=== PATIENT | female | born 1975 | race Caucasian/White ===

== ENCOUNTER 2020-06-08 01:47 | Outpatient (CLI) | payer OTHER, SELFPAY ==
--- NOTE | 2020-06-08 06:15 | DI.MAMMO_ITS ---
EXAM: MAMMO SCREENING CLINICAL HISTORY: screening,Z12.39 TECHNIQUE: Mammograms were interpreted according to the usual protocol including computer analysis w [employer] CAD system, tomosynthesis and C-view imaging. COMPARISON: Baseline examination. FINDINGS: The breasts are composed of scattered fibroglandular densities, Breast Density category B. No suspicious masses or suspicious microcalcifications are seen. No skin thickening or abnormal axillary lymph nodes are seen. There has been no significant change from prior exams. IMPRESSION: BI-RADS Category 1, Negative mammogram Yearly screening mammography is recommended. Breast Density - Category B, scattered fibroglandular densities. A negative radiographic report should not delay biopsy if a dominant or clinically suspicious mass is present. Up to ten percent of cancers are not identified on mammography. A negative report may reinforce clinical impression. Adenosis and dense breasts may obscure an underlying neoplasm. False positive reports average 6 to 10%. Patient will receive a letter notifying them of these results.
--- NOTE | 2020-06-08 06:15 | DI.US_ITS ---
EXAM: US PELVIS TRANSVAGINAL CLINICAL HISTORY: heavy periods,MENORRHAGIA, N92.0 TECHNIQUE: Transabdominal and transvaginal imaging was performed using standard protocol. COMPARISON: No exams were available for comparison FINDINGS: KIDNEYS: Kidneys are symmetric in size. No evidence of renal calculi. No evidence of hydronephrosis. No renal mass or cyst identified. UTERUS: 8.7 x 4.3 x 4.7 cm Anteverted. Endometrium: 3 millimeters. Myometrium: Heterogeneous myometrium several small fibroids. Cervix: Nabothian cysts. scar. OVARIES: Right: Cyst or mass: None. Left: Cyst or mass: None. DOPPLER: Color: Symmetric and uniform flow to both ovaries. No hyperemia. Duplex: Normal ovarian arterial waveforms visualized. CUL-DE-SAC: Free fluid: None. IMPRESSION: 1. Heterogeneous myometrium. Small fibroids.. 2. Unremarkable bilateral ovaries. DATA REPOSITORY:
== END 2020-06-08 02:07 ==
PROVIDERS: PCP Emergency Medicine; Visit Provider Nurse Practitioner Family
DX: Z12.31 Encounter for screening mammogram for malignant neoplasm of breast (principal); N92.0 Excessive and frequent menstruation with regular cycle; D25.9 Leiomyoma of uterus, unspecified
CPT/HCPCS: 77063; 77067; 76830; 76856

== ENCOUNTER 2020-06-08 04:19 | Outpatient (CLI) | payer OTHER, SELFPAY | END 2020-06-08 04:20 | disposition home or self-care (01) | LOC: LBO 04:19 | PROVIDERS: Nurse Practitioner Family; PCP Emergency Medicine; Visit Provider Emergency Medicine | DX: N92.0 Excessive and frequent menstruation with regular cycle (principal) | CPT/HCPCS: 36415; 84443 ==

== ENCOUNTER 2020-06-16 09:46 | Outpatient (REF) | payer OTHER, SELFPAY ==
--- NOTE | 2020-06-16 09:30 | PAPFT_PTH ---
PATIENT: Kavin Phan LOC: [facility] U#:[id number] AGE/SX: 45/F ROOM: RE06/16/[address]: TEJ Franklin : 1975 BED: DIS: 06/16/2020 SPEC #: [id number] RECD: 06/16/20 12:57 STATUS: [place] REGerry #: [id number] KRISTAN: 06/16/20 09:[address]: Janice Chisholm DEPT: [facility] Cytology RECD BY: Cathy Day ENTERED: 06/16/20 12:57 SP TYPE: PAPFT EDER DR: Avni Vasquez, Tissues: 1 - CX/ENDOCX FOR PAP SMEARS Procedures: PAP THIN PREP/UVM Screening HPV DNA PROBE Comments: [id number]
== END 2020-06-16 09:47 | disposition home or self-care (01) ==
LOC: LBN 09:46
PROVIDERS: PCP Emergency Medicine; Referring Provider Emergency Medicine; Visit Provider Nurse Practitioner Family
DX: Z12.4 Encounter for screening for malignant neoplasm of cervix (principal); Z11.51 Encounter for screening for human papillomavirus (HPV)
CPT/HCPCS: 88142; 87624

== ENCOUNTER 2020-11-23 00:44 | Outpatient (CLI) | payer OTHER, SELFPAY ==
--- NOTE | 2020-11-23 14:09 | DI.RAD_ITS ---
Exam(s) XR ANKLE RT COMPLETE EXAM: XR ANKLE RT COMPLETE CLINICAL HISTORY: right ankle pain, M25.579. TECHNIQUE: 2D digital imaging was performed. COMPARISON: No exams were available for comparison FINDINGS: There is no evidence of acute fracture no widening of the mortise. There are 3 similar appearing os ossific densities around the medial malleolus which have the appearance more so of accessory ossicles than fracture fragments. Tibiotalar-ankle joint appears unremarkable as does the subtalar joint. N o osseous tarsal coalition. Bone density normal. IMPRESSION: DATA REPOSITORY: RADIATION DOSE DELIVERED:
== END 2020-11-23 01:04 ==
PROVIDERS: PCP Emergency Medicine; Visit Provider Emergency Medicine
DX: M25.571 Pain in right ankle and joints of right foot (principal); M61.1 Myositis ossificans progressiva
CPT/HCPCS: 73610

== ENCOUNTER → 2022-01-07 00:01 | Outpatient (CLI) | payer OTHER, SELFPAY ==
--- NOTE | 2022-01-07 06:30 | DI.MAMMO_ITS ---
Exam(s) MAMMO SCREENING EXAM: MAMMO SCREENING CLINICAL HISTORY: screening,Z12.39. TECHNIQUE: Bilateral full field digital CC and MLO mammographic images were obtained with 3D tomosyn thesis and utilizing computer aided detection (CAD). COMPARISON: Prior mammograms were reviewed, the most recent being June 2020. FINDINGS: There are no CAD designations. There are no new new spiculated masses nor malignant appearing microcalcification groups. There is no significant architectural distortion nor skin thickening-retraction. IMPRESSION: No radiographic evidence of malignancy. BI-RADS Category 1 - Negative Breast Density - Category C - Heterogeneously dense Breast density Category C or D implies that the patient has dense breast tissue. Dense breast tissue can make it harder to find cancer on a mammogram. Dense breast tissue is also associated with an incr eased risk of breast cancer. This information about the result of the mammogram report was provided to the patient to raise their awareness. Use this report when you speak with the patient about their risks for breast cancer, which includes their family history. At that time, you may recommend additional screening tests (Ultrasoun d or MRI) as these tests may add significant information. A negative radiographic report should not delay biopsy if a dominant or clinically suspicious mass is present. Up to ten percent of cancers are not identified on mammography. A negative report may reinforce clinical impression. Adenosis and dense breasts may obscure an underlying neoplasm. False positive reports average 6 to 10%. Patient will receive a letter notifying them of these results.
== END ==
PROVIDERS: PCP Nurse Practitioner; Visit Provider Nurse Practitioner
DX: Z12.31 Encounter for screening mammogram for malignant neoplasm of breast (principal); R92.8 Other abnormal and inconclusive findings on diagnostic imaging of breast
CPT/HCPCS: 77063; 77067

== ENCOUNTER 2022-08-09 01:33 | Outpatient (CLI) | payer BC, SELFPAY ==
--- NOTE | 2022-08-09 | DI.MAMMO_ITS ---
Exam(s) US BREAST LT COMPLETE MG MAMMO DIAGNOSTIC UNI EXAM: MG MAMMO DIAGNOSTIC UNI -LEFT AND COMPLETE LEFT BREAST ULTRASOUND CLINICAL HISTORY: DIAGNOSTIC, LT BREAST MASS, N63.20. TECHNIQUE: Unilateral LEFT BREAST CC AND MLO PLUS SPOT mammographic images were obtained with 3D to mosynthesis technique and utilizing computer aided detection (CAD). Also performed complete left breast ultrasound including all 4 quadrants, the retroareolar region, an d the left axilla. COMPARISON: Prior mammograms were reviewed, the most recent being 01/07/2022. FINDINGS: DIAGNOSTIC LEFT BREAST MAMMOGRAM: There been no significant change in the appearance and distribution tissue left breast. There are no CAD designations. No new masses nor malignant-appearing microcalcification groups in left breast. No new architectural distortion or skin thickening-traction. COMPLETE LEFT BREAST ULTRASOUND: This study reveals no evidence of solid or significant cystic lesions in all 4 quadrants nor in the r etroareolar region. Scanning of the left axilla is negative for adenopathy. IMPRESSION: 1. No radiographic evidence of malignancy in left breast. 2. Negative complete left breast ultrasound. The patient was informed of the findings and follow-up recommendations prior to leaving the [facility] today. BI-RADS Category 2 - Benign Findings Breast Density - Category C - Heterogeneously dense Breast density Category C or D implies that the patient has dense breast tissue. Dense breast tissue can make it harder to find cancer on a mammogram. Dense breast tissue is also associated with an incr eased risk of breast cancer. This information about the result of the mammogram report was provided to the patient to raise their awareness. Use this report when you speak with the patient about their risks for breast cancer, which includes their family history. At that time, you may recommend additional screening tests (Ultrasoun d or MRI) as these tests may add significant information. A negative radiographic report should not delay biopsy if a dominant or clinically suspicious mass is present. Up to ten percent of cancers are not identified on mammography. A negative report may reinforce clinical impression. Adenosis and dense breasts may obscure an underlying neoplasm. False positive reports average 6 to 10%. Patient will receive a letter notifying them of these results.
== END 2022-08-09 01:53 ==
PROVIDERS: PCP Nurse Practitioner Family; Visit Provider Family Medicine
DX: N63.20 Unspecified lump in the left breast, unspecified quadrant (principal)
CPT/HCPCS: 76642; 77061; 77065; G0279

== ENCOUNTER 2023-11-29 01:47 | Outpatient (CLI) | payer BC, SELFPAY ==
--- NOTE | 2023-11-29 08:00 | DI.MAMMO_ITS ---
Exam(s) MAMMO SCREENING EXAM: MAMMO SCREENING CLINICAL HISTORY: screening,Z12.39. TECHNIQUE: Bilateral full field digital CC and MLO mammographic images were obtained with 3D tomosyn thesis and utilizing computer aided detection (CAD). COMPARISON: Prior mammograms were reviewed. Prior ultrasound exam of 08/09/2022 also reviewed. FINDINGS: Fibroglandular tissue pattern is again noted be moderately dense. There are no obvious new spiculated masses nor malignant appearing microcalcification groups. There is no significant architectural distortion nor skin thickening-retraction. IMPRESSION: No radiographic evidence of malignancy. BI-RADS Category 1 - Negative Breast Density - Category C - Heterogeneously dense Breast density Category C or D implies that the patient has dense breast tissue. Dense breast tissue can make it harder to find cancer on a mammogram. Dense breast tissue is also associated with an incr eased risk of breast cancer. This information about the result of the mammogram report was provided to the patient to raise their awareness. Use this report when you speak with the patient about their risks for breast cancer, which includes their family history. At that time, you may recommend additional screening tests (Ultrasoun d or MRI) as these tests may add significant information. A negative radiographic report should not delay biopsy if a dominant or clinically suspicious mass is present. Up to ten percent of cancers are not identified on mammography. A negative report may reinforce clinical impression. Adenosis and dense breasts may obscure an underlying neoplasm. False positive reports average 6 to 10%. Patient will receive a letter notifying them of these results.
== END 2023-11-29 02:07 ==
LOC: DI 01:47
PROVIDERS: PCP Nurse Practitioner Family; Visit Provider Family Medicine
DX: Z12.31 Encounter for screening mammogram for malignant neoplasm of breast (principal)
CPT/HCPCS: 77063; 77067

== ENCOUNTER 2023-11-29 15:02 | Outpatient (CLI) | payer BC, SELFPAY ==
[2023-11-29 14:52] LABS: HCT 40.1 % (36.0-46.0); HGB 13.4 g/dL (11.2-15.7); MCH 30.5 pg (27.0-33.0); MCHC 33.4 % (32.0-36.0); MCV 91 fL (80-95); MPV 9.1 fL (8.0-11.0); Platelet Count 277 10^3/uL (130-400); RBC 4.39 10^6/uL (3.93-5.22); RDW 13.2 % (11.7-14.6); RDW-SD 44.4 fL
[2023-11-29 15:03] LABS: Hemoglobin A1C 5.5 % (<5.7)
[2023-11-29 15:33] LABS: ALT 30 U/L (14-59); AST 16 U/L (15-37); Albumin 3.7 g/dL (3.4-5.0); Alkaline Phosphatase 59 U/L (46-116); Anion Gap 7.8 mmol/L (3-11); BUN 16 mg/dL (7-18); Bilirubin, Total 0.29 mg/dL (0.2-1.0); CO2 27.2 mmol/L (21.0-32.0); Calculated LDL 100 mg/dL (<100); Chloride 106 mmol/L (98-107); Cholesterol 191 mg/dL (<200); Estimated GFR 69.06 (mL/min/1.73m2); Glucose 96 mg/dL (74-106); HDL Cholesterol 75 mg/dL (40-60); Sodium 141 mmol/L (136-145); TSH (W/Ref FT4) 1.44 uIU/mL (0.36-3.74); Total Protein 6.8 g/dL (6.4-8.2); Triglyceride 80 mg/dL (<150)
[2023-11-30 23:06] LABS: FSH 4.8 mIU/mL (See Note)
[2023-11-30 23:10] LABS: LH 2.3 mIU/mL (See Note)
== END 2023-11-29 15:03 | disposition home or self-care (01) ==
LOC: LBO 15:04
PROVIDERS: Family Medicine; PCP Nurse Practitioner Family; Visit Provider Nurse Practitioner Family
DX: N95.1 Menopausal and female climacteric states (principal); Z00.00 Encounter for general adult medical examination without abnormal findings
CPT/HCPCS: 36415; 80053; 80061; 85027; 83001; 83002; 83036; 84443

== ENCOUNTER 2023-12-24 10:52 | Emergency (ER) | payer BC, SELFPAY ==
[2023-12-24 10:58] VITALS: BP 120/74; PULSE 82; RESP 16; TEMP 36.6; O2SAT 98
--- NOTE | 2023-12-24 11:00 | DI.RAD_ITS ---
Exam(s) XR KNEE LT 2V AP,LAT EXAM: XR KNEE LT 2V AP,LAT CLINICAL HISTORY: laceration. TECHNIQUE: 2D digital imaging was performed. COMPARISON: No exams were available for comparison FINDINGS: Two views-AP and lateral. There is evidence of previous ACL surgery. No evidence of fracture or obvious joint effusion nor significant joint space narrowing. Soft tissue /subcutaneous defect noted over the anterior tibial tubercle region h, consistent with large air soft tissue defect-avulsion. Two small radiopaque foreign bodies are noted in the soft tissues just ante rior to the anterior tibial tubercle. These are probably small foreign bodies. IMPRESSION: Anterior small foreign bodies as described above. No fractures. First read by [facility]. Final report called by myself to ER physician 12/04/2023 6:32 p.m. DATA REPOSITORY: RADIATION DOSE DELIVERED:
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
[2023-12-24 11:58] VITALS: PULSE 62; RESP 16; O2SAT 100
--- NOTE | 2023-12-24 12:35 | DI.VRAD_ITS ---
PROCEDURE INFORMATION: Exam: XR Left Knee Exam date and time: 12/24/2023 11:11 AM Age: 48 years old Clinical indication: Other: Laceration TECHNIQUE: Imaging protocol: Radiologic exam of the left knee. Views: 1 or 2 views. COMPARISON: No relevant prior studies available. FINDINGS: Bones/joints: Prior ACL reconstruction. No acute fracture or malalignment. Soft tissues: Soft tissue defect overlying the tibial tubercle. No unexpected radiopaque foreign body. IMPRESSION: 1. Soft tissue defect overlying the tibial tubercle. 2. No unexpected radiopaque foreign body. Dictated and Authenticated by: Helena Smith MD. Ordering:CATE Hoff MD
== END 2023-12-24 12:01 | disposition home or self-care (01) ==
PROVIDERS: Emergency Provider Emergency Medicine; PCP Nurse Practitioner Family
DX: S81.812A Laceration without foreign body, left lower leg, initial encounter (principal); V18.4XXA Pedal cycle driver injured in noncollision transport accident in traffic accident, initial encounter; Y92.488 Other paved roadways as the place of occurrence of the external cause; Y93.55 Activity, bike riding; Z87.891 Personal history of nicotine dependence
CPT/HCPCS: 12032; 99283; 73560

== ENCOUNTER → 2025-03-04 11:37 | Outpatient (CLI) | payer BC, SELFPAY ==
--- NOTE | 2025-03-04 11:50 | DI.RAD_ITS ---
Exam(s) XR CHEST 2V PA LATERAL EXAM: XR CHEST 2V PA LATERAL CLINICAL HISTORY: eval pathology, cough, R05.9. TECHNIQUE: 2D digital imaging was performed. COMPARISON: No exams were available for comparison FINDINGS: 2 views: Heart size is normal. The mediastinum is not widened. Left lung is clear. However, there is nodular type infiltrate in the right parahilar region. There are no pleural effusions. No pneumothorax. No fractures. IMPRESSION: Right upper lobe parahilar infiltrate. Correlate clinically. Requires imaging follow-up to resolution to rule out malignancy. DATA REPOSITORY: RADIATION DOSE DELIVERED:
== END ==
PROVIDERS: PCP Nurse Practitioner Family; Visit Provider Nurse Practitioner Family
DX: R05.9 Cough, unspecified (principal); R91.8 Other nonspecific abnormal finding of lung field
CPT/HCPCS: 71046

== ENCOUNTER 2025-03-11 01:34 | Outpatient (CLI) | payer BC, SELFPAY ==
[2025-03-11 13:54] LABS: Abs Immature Grans 0.03 10^3/uL (0.0-0.06); HCT 41.8 % (36.0-46.0); HGB 14.3 g/dL (11.2-15.7); Immature Grans % 0.5 %; MCH 31.0 pg (27.0-33.0); MCHC 34.2 % (32.0-36.0); MCV 91 fL (80-95); MPV 9.6 fL (8.0-11.0); Platelet Count 363 10^3/uL (130-400); RBC 4.62 10^6/uL (3.93-5.22); RDW 12.2 % (11.7-14.6); RDW-SD 40.3 fL; WBC 6.24 10^3/uL (4.4-10.8)
[2025-03-11 15:10] LABS: ALT 26 U/L (10-49); AST 24 U/L (<34); Albumin 4.4 g/dL (3.2-5.0); Alkaline Phosphatase 53 U/L (46-116); Anion Gap 8 mmol/L (3-11); BUN 15 mg/dL (9-23); Bilirubin, Total 0.5 mg/dL (0.2-1.2); CO2 27.0 mmol/L (20.0-31.0); Calcium 9.5 mg/dL (8.3-10.6); Chloride 107 mmol/L (98-107); Glucose 93 mg/dL (74-106); Potassium 4.3 mmol/L (3.5-5.1); Sodium 142 mmol/L (136-145); Total Protein 7.1 g/dL (5.7-8.2)
== END 2025-03-11 01:35 | disposition home or self-care (01) ==
LOC: LOS 01:35
PROVIDERS: PCP Nurse Practitioner Family; Visit Provider Nurse Practitioner Family
DX: J18.9 Pneumonia, unspecified organism (principal)
CPT/HCPCS: 36415; 80053; 85025

== ENCOUNTER → 2025-03-17 00:29 | Outpatient (CLI) | payer BC, SELFPAY ==
--- NOTE | 2025-03-17 08:00 | DI.CT_ITS ---
Exam(s) CT CHEST W EXAM: CT CHEST W CLINICAL HISTORY: evaluate pathology, CXR NOTED NODULAR INFILTRATE TECHNIQUE: Imaging Protocol: Axial computed tomography images with coronal and sagittal reformatted images were created and reviewed. Computer aided detection (CAD) was utilized. CONTRAST MATERIAL: Intravenous: Omnipaque 350 Contrast volume:70 ml. COMPARISON: CR XR CHEST 2V PA LATERAL from 03/04/2025 FINDINGS: Pulmonary parenchyma: No consolidation or infiltrate.. No dominant measurable mass. There are few scattered calcified granulomas. No suspicious nodules. Tracheobronchial tree: No bronchiectasis or mucous plugging. Mediastinum and Malaika: No dominant adenopathy or fluid collection. Pleura: No effusion. No pneumothorax. Heart: The heart is not dilated. No coronary artery calcifications are seen. Aorta: Thoracic aorta non-dilated. No atherosclerotic changes. Pulmonary arteries: No gross evidence of emboli. Upper abdomen: No acute findings. Bones: No significantdegenerative changes in the spine. Soft tissues: Unremarkable. IMPRESSION: The previously noted right upper lobe infiltrate has has resolved without residual abnormality. RADIATION DOSE DELIVERED: Total DLP DATA REPOSITORY: All CT scans at this facility are submitted to the National Radiology Data Registry (NRDR) Dose Index Registry (DIR) with the [employer] ([employer]). RADIATION OPTIMIZATION: All CT scans at this facility use at least one of these dose optimization techniques: automated exposure control; mA and/or kV adjustment per patient size (includes targeted exams where dose is matched to clinical indication); or iterative reconstruction.
[2025-03-17] MEDS: Normal Saline Flush 10 ML SYR IVP (14:54)
[2025-03-17] MEDS: Normal Saline - Diluent 50 ML VIAL IJ (14:54)
[2025-03-17] MEDS: Omnipaque 350 MG/ML 100 ML BTL IJ (14:54)
== END ==
LOC: DI 00:29
PROVIDERS: PCP Nurse Practitioner Family; Visit Provider Nurse Practitioner Family
DX: R91.8 Other nonspecific abnormal finding of lung field (principal)
CPT/HCPCS: 71260; J3490